=== PATIENT | male | born 1925 | race Caucasian/White ===

== ENCOUNTER 2016-05-13 17:43 | Emergency (ER) | payer MEDICARE, OTHER ==
[~2016-05-13] VITALS: Ht 162.6 cm; Wt 40.0 kg
[2016-05-13] MEDS ORDERED: CEFEPIME 2GM/50 ML (PMX) 50 ML IVPB STA (17:50)
[2016-05-13] MEDS ORDERED: SOD CHLORIDE 0.9% 1,000 ML IV STA ×2 (17:50)
[2016-05-13 17:52] VITALS: Ht 162.6 cm; Wt 40.0 kg
[2016-05-13] MEDS ORDERED: VANCOMYCIN 1 GM (PMX) 250 ML IVPB ONE (18:00)
[2016-05-13 18:35] LABS: ADD SCAN DIFF NO
[2016-05-13 18:37] LABS: BASOPHILS % 0.3 % (0.0-2.0); EOSINOPHILS # 0.3 10^3/ul (0.0-0.5); HEMATOCRIT 37.6 % (42.0-52.0); HEMOGLOBIN 12.1 g/dl (14.0-18.0); LYMPHOCYTES # 0.7 10^3/ul (0.8-2.9); LYMPHOCYTES % 8.4 % (15.0-51.0); MEAN CORPUSCULAR HEMOGLOBIN 28.5 pg (29.0-33.0); MEAN CORPUSCULAR HGB CONC 32.2 g/dl (32.0-37.0); MEAN CORPUSCULAR VOLUME 88.5 fl (82.0-101.0); MEAN PLATELET VOLUME 10.7 fl (7.4-10.4); MONOCYTE # 0.8 10^3/ul (0.3-0.9); NEUTROPHIL # 6.8 10^3/ul (1.6-7.5); PLATELET COUNT 155 10^3/UL (140-415); RED BLOOD COUNT 4.25 10^6/ul (4.70-6.10); RED CELL DISTRIBUTION WIDTH 19.1 % (11.5-14.5); WHITE BLOOD COUNT 8.7 10^3/ul (4.8-10.8)
--- NOTE | 2016-05-13 18:50 | RADRPT ---
PROCEDURE: XR Chest. CLINICAL INDICATION: Chest pain TECHNIQUE: Single frontal view of the chest was obtained COMPARISON: None FINDINGS: The heart is enlarged. The thoracic aorta is calcified. The patient is status post CABG. There is a left-sided pacemaker in place. There are mild patchy right upper lobe and right lower lobe infiltrates. There is no pleural effusion or pneumothorax. RPTAT: AA IMPRESSION: Moderate to marked cardiomegaly. Mild patchy right upper lobe and right lower lobe infiltrates. Calcified aorta consistent with atherosclerotic disease. .Elijah Mata MD, MD Date Time Electronically viewed and signed by .Elijah Mata MD, on 05/13/2016 18:50 .S/
[2016-05-13 18:52] LABS: AMMONIA < 9 umol/l (9-30); LACTIC ACID 1.7 mmol/L (0.5-2.2)
[2016-05-13] MEDS ORDERED: LOVA40TA64 PO (18:52)
[2016-05-13] MEDS ORDERED: OLAN5TAB5 PO (18:52)
[2016-05-13] MEDS ORDERED: FURO40TA4 PO (18:53)
[2016-05-13] MEDS ORDERED: TAMS-14 PO (18:53)
[2016-05-13] MEDS ORDERED: POTA20TA96 PO (18:54)
[2016-05-13] MEDS ORDERED: VALS320T11 PO (18:55)
[2016-05-13 18:59] LABS: INR 1.51; PROTIME 18.3 Sec (12.2-14.2); PT RATIO 1.4
[2016-05-13 19:00] LABS: PARTIAL THROMBOPLASTIN TIME 38.3 Sec (25.0-35.0)
[2016-05-13 19:07] LABS: ALBUMIN 3.6 g/dl (3.3-4.9)
[2016-05-13 19:08] LABS: CHLORIDE 99 mmol/L (97-110); POTASSIUM 5.1 mmol/L (3.5-5.1); SODIUM 140 mmol/L (135-144)
[2016-05-13 19:10] LABS: ALBUMIN/GLOBULIN RATIO 0.97; ANION GAP 17 (8-16); ASPARTATE AMINO TRANSFERASE 25 IU/L (15-46); BILIRUBIN,INDIRECT 0.6 mg/dl (0-1.1); BILIRUBIN,TOTAL 0.6 mg/dl (0.2-1.3); CARBON DIOXIDE 29 mmol/L (21-31); CREATININE 1.98 mg/dl (0.61-1.24); TOTAL PROTEIN 7.3 g/dl (6.1-8.1)
[2016-05-13 19:11] LABS: ALANINE AMINOTRANSFERASE 27 IU/L (13-69); ALKALINE PHOSPHATASE 81 IU/L (42-121); BLOOD UREA NITROGEN 60 mg/dl (7-20); CALCIUM 8.5 mg/dl (8.4-10.2); GLUCOSE 110 mg/dl (70-220)
--- NOTE | 2016-05-13 19:14 | ERD ---
ER Documentation Chief Complaint Date/Time DATE: 05/13/16 TIME: 19:13 Chief Complaint AMS HPI Patient is a 76-year-old male with dementia who presents with altered mental status. The patient was brought in by ambulance. He was weak and dizzy and found staggering on the sidewalk. His Accu-Chek was 112 and his EKG showed a paced rhythm by paramedics. Please note the history and physical exam was limited secondary to patient's mental status upon arrival. The patient had an [place] park interpreter used and still was not always making sense. The patient was awake alert and oriented 1 per the park interpreter. I cannot obtain history otherwise. After initial orders were placed a family member did show up and gave history that the patient has significant dementia and is at his baseline. ROS All systems reviewed and are negative except as per history of present illness. Medications Home Meds Reported Medications Valsartan* (Diovan*) 320 Mg Tablet, 320 MG PO DAILY Y for PRN, TAB 05/13/16 Potassium Chloride* (Potassium Chloride*) 20 Meq Tablet.er, 20 MEQ PO DAILY, TAB.SA 05/13/16 Furosemide* (Furosemide*) 40 Mg Tablet, 40 MG PO DAILY, TAB 05/13/16 Tamsulosin Hcl* (Flomax*) 0.4 Mg Cap.er.24h, 0.4 MG PO DAILY, CAP 05/13/16 Lovastatin* (Altoprev*) 40 Mg Tab.sr.24h, 40 MG PO HS, TAB 05/13/16 Olanzapine* (Zyprexa*) 5 Mg Tablet, 7.5 MG PO BID, #30 TAB 05/13/16 Allergies Allergies: Coded Allergies: No Known Allergy (Unverified , 05/13/16) PMhx/Soc Positive for dementia Smoking Status: Unknown if ever smoked FmHx Unable to obtain Physical Exam Vitals Vital Signs Date Time Temp Pulse Resp B/P Pulse Ox O2 Delivery O2 Flow Rate FiO2 05/13/16 19:41 97.6 20 93 05/13/16 18:05 Nasal Cannula 2 05/13/16 17:52 97.6 71 20 147/46 93 Physical Exam Const: No acute distress Head: Atraumatic Eyes: Normal Conjunctiva ENT: Normal External Ears, Nose and Mouth. Neck: Full range of motion..~ No meningismus. Resp: Clear to auscultation bilaterally Cardio: Regular rate and rhythm, no murmurs Abd: Soft, non tender, non distended. Normal bowel sounds Skin: No petechiae or rashes Back: No midline or flank tenderness Ext: No cyanosis, or edema Neur: Awake but demented at baseline Result Diagram: 05/13/16181905/13/161819 Results 24 hrs Laboratory Tests Test 05/13/16 18:20 Acetaminophen Level Pending Activated Partial Thromboplast Time 38.3Sec Alanine Aminotransferase (ALT/SGPT) 27IU/L Albumin 3.6g/dl Albumin/Globulin Ratio 0.97 Alkaline Phosphatase 81IU/L Ammonia < 9umol/l Anion Gap 17 Aspartate Amino Transf (AST/SGOT) 25IU/L Basophils # 0.010^3/ul Basophils % 0.3% Blood Urea Nitrogen 60mg/dl Calcium Level 8.5mg/dl Carbon Dioxide Level 29mmol/L Chloride Level 99mmol/L Creatinine 1.98mg/dl Direct Bilirubin 0.00mg/dl Eosinophils # 0.310^3/ul Eosinophils % 3.0% Ethyl Alcohol Level Pending Free Thyroxine 0.96ng/dl Globulin 3.70g/dl Glucose Level 110mg/dl Hematocrit 37.6% Hemoglobin 12.1g/dl INR International Normalized Ratio 1.51 Indirect Bilirubin 0.6mg/dl Lactic Acid Level 1.7mmol/L Lymphocytes # 0.710^3/ul Lymphocytes % 8.4% Mean Corpuscular Hemoglobin 28.5pg Mean Corpuscular Hemoglobin Concent 32.2g/dl Mean Corpuscular Volume 88.5fl Mean Platelet Volume 10.7fl Monocytes # 0.810^3/ul Monocytes % 9.0% Neutrophils # 6.810^3/ul Neutrophils % 79.0% Nucleated Red Blood Cells # 0.010^3/ul Nucleated Red Blood Cells % 0.0/100WBC Platelet Count 63442^3/UL Potassium Level 5.1mmol/L Prothrombin Time 18.3Sec Prothrombin Time Ratio 1.4 Red Blood Count 4.2510^6/ul Red Cell Distribution Width 19.1% Salicylates Level Pending Sodium Level 140mmol/L Thyroid Stimulating Hormone (TSH) 1.590MIU/L Total Bilirubin 0.6mg/dl Total Protein 7.3g/dl Troponin I 0.084ng/ml White Blood Count 8.710^3/ul Current Medications Medications (Trade) Dose Ordered Sig/Rosalee Route PRN Reason Start Time Stop Time Status Last Admin Dose Admin Cefepime HCl 50 ml @ 100 mls/hr ONCE STAT IVPB 05/13/16 17:50 05/13/16 18:19 DC 05/13/16 18:25 Vancomycin HCl 250 ml @ 125 mls/hr ONCE ONCE IVPB 05/13/16 18:00 05/13/16 19:13 DC Sodium Chloride 1,000 ml @ 1,000 mls/hr Q1H STAT IV 05/13/16 17:50 05/13/16 18:49 DC 05/13/16 18:26 Sodium Chloride (NS) 1,000 ml @ 1,000 mls/hr Q1H STAT IV 05/13/16 17:50 05/13/16 18:49 DC 05/13/16 18:26 Procedures/MDM EKG read by me: Rate/Rhythm: Paced rhythm at a rate of 70 Intervals: Normal Impression: Paced rhythm with negative Sgarbossa criteria PROCEDURE: XR Chest. CLINICAL INDICATION: Chest pain TECHNIQUE: Single frontal view of the chest was obtained COMPARISON: None FINDINGS: The heart is enlarged. The thoracic aorta is calcified. The patient is status post CABG. There is a left-sided pacemaker in place. There are mild patchy right upper lobe and right lower lobe infiltrates. There is no pleural effusion or pneumothorax. RPTAT: AA IMPRESSION: Moderate to marked cardiomegaly. Mild patchy right upper lobe and right lower lobe infiltrates. Calcified aorta consistent with atherosclerotic disease. .Elijah Mata MD, MD Date Time Electronically viewed and signed by .Elijah Mata MD, MD on 05/13/2016 18: 50 Patient is a 76-year-old male with dementia who presents with dementia. The patient had walked out of his house and was found by paramedics without family around. Likely the police were able to match up a missing person call who ended up being the family member of the patient. The family member says he is at his normal baseline with dementia. Chest x-ray shows cardiomegaly and possible infiltrates but white blood cell count is normal and there is no fever and I doubt true pneumonia at this time. The patient was found to have dehydration and was given fluids. Initial dose of cefepime was given but I would not continue antibiotics at this time. I initially ordered a CT head but this was canceled when the family says he is at his baseline. The family did not even want to wait for labs to return prior to discharge. The patient can follow-up with a primary doctor within 24-48 hours. The patient can return for any worsening symptoms. I do believe that outpatient management is appropriate at this time as family would not have called 911 if he had not walked out of the house. Departure Diagnosis: Primary Impression: Dementia Dementia type: unspecified type Dementia behavioral disturbance: without behavioral disturbance Qualified Code: F03.90 - Dementia without behavioral disturbance, unspecified dementia type Additional Impression: Altered level of consciousness Condition: Fair Patient Instructions: Dementia, Any Type Referrals: Your doctor Additional Instructions: Call your primary care doctor TOMORROW for an appointment during the next 1-2 days.See the doctor sooner or return here if your condition worsens before your appointment time. SISSY SINCLAIR MD May 13, 2016 19:14
[2016-05-13 19:23] LABS: TROPONIN-I 0.084 ng/ml (0.00-0.12)
[2016-05-13 19:41] VITALS: RESP 20; TEMP 97.6
[2016-05-13 20:33] LABS: ACETAMINOPHEN < 10.0 ug/ml (10.0-30.0); ETHANOL < 10.0 mg/dl; SALICYLATE < 1.0 mg/dl (5.0-30.0)
== END 2016-05-13 19:43 | disposition home or self-care (01) ==
LOC: EDBD 17:43 → E/R 17:43
DX: F03.90 Unspecified dementia, unspecified severity, without behavioral disturbance, psychotic disturbance, mood disturbance, and anxiety (principal); R41.82 Altered mental status, unspecified; R07.9 Chest pain, unspecified
CPT/HCPCS: 71010; 80053; 80306; 82140; 83605; 84439; 84443; 84484; 85025; 85610; 85730; 93005; 96374; 99285; J0692; J3370; J7030